=== PATIENT | female | born 2000 | race Two or more races ===

== ENCOUNTER 2021-11-11 04:13 | Inpatient (IN) | payer OTHER ==
[~2021-11-11] VITALS: Ht 167.6 cm; Wt 44.5 kg
[2021-11-11] MEDS ORDERED: FA-80.8 M1 PO (04:32)
== END 2021-11-13 12:30 | disposition home or self-care (01) | DRG 869 ==
LOC: ER 04:13 → EMR PED 04:25 → ER 04:25 → PED 16:26
PROVIDERS: ADMIT Emergency Medicine Pediatric Emergency Medicine; ATTEND Emergency Medicine Pediatric Emergency Medicine
DX: A49.3 Mycoplasma infection, unspecified site (principal); R10.9 Unspecified abdominal pain; E86.0 Dehydration; E87.8 Other disorders of electrolyte and fluid balance, not elsewhere classified; R63.0 Anorexia; Z20.822 Contact with and (suspected) exposure to COVID-19

== ENCOUNTER 2022-06-03 23:08 | Emergency (ER) | payer OTHER ==
[~2022-06-03] VITALS: Ht 165.1 cm; Wt 44.0 kg
[~2022-06-03 23:08] MED LIST: FA-80.8 M1 PO
[2022-06-04] MEDS ORDERED: PHENAGIL TABLE1 EACH PO (03:33)
[2022-06-04] MEDS ORDERED: ZYNCOF 20-400120 ML PO (03:33)
== END 2022-06-04 03:39 ==
LOC: ER 23:08
DX: B34.9 Viral infection, unspecified (principal); Z20.822 Contact with and (suspected) exposure to COVID-19

== ENCOUNTER 2022-08-21 14:34 | Emergency (ER) | payer OTHER ==
[~2022-08-21] VITALS: Ht 167.6 cm; Wt 47.6 kg
[~2022-08-21 14:34] MED LIST changes: +PHENAGIL TABLE1 EACH PO; +ZYNCOF 20-400120 ML PO
== END 2022-08-21 20:36 | disposition home or self-care (01) ==
LOC: ER 14:34
DX: U07.1 COVID-19 (principal); A49.3 Mycoplasma infection, unspecified site; J06.9 Acute upper respiratory infection, unspecified

== ENCOUNTER 2022-11-25 16:36 | Emergency (ER) | payer OTHER ==
[~2022-11-25] VITALS: Ht 167.6 cm; Wt 46.3 kg
== END 2022-11-25 20:57 | disposition home or self-care (01) ==
LOC: ER 16:36
DX: J06.9 Acute upper respiratory infection, unspecified (principal); Z20.822 Contact with and (suspected) exposure to COVID-19

== ENCOUNTER 2023-03-24 19:08 | Emergency (ER) | payer OTHER ==
[~2023-03-24] VITALS: Ht 167.6 cm; Wt 47.6 kg
[2023-03-24] MEDS ORDERED: PRENA1 CHEW TA1.4 MG PO (20:32)
[2023-03-24] MEDS ORDERED: FEOSOL45 MG PO (20:32)
== END 2023-03-25 00:48 | disposition home or self-care (01) ==
LOC: ER 19:08
DX: O20.8 Other hemorrhage in early pregnancy (principal); Z3A.10 10 weeks gestation of pregnancy

== ENCOUNTER 2023-04-18 00:29 | Emergency (ER) | payer OTHER ==
[~2023-04-18] VITALS: Ht 167.6 cm; Wt 46.3 kg
[~2023-04-18 00:29] MED LIST changes: +FEOSOL45 MG PO; +PRENA1 CHEW TA1.4 MG PO
[2023-04-18] MEDS ORDERED: PEPCID20 MG PO (03:04)
[2023-04-18] MEDS ORDERED: ZOFRAN8 MG PO (03:04)
== END 2023-04-18 03:28 | disposition home or self-care (01) ==
LOC: ER 00:29
DX: K52.9 Noninfective gastroenteritis and colitis, unspecified (principal); R11.10 Vomiting, unspecified; Z3A.14 14 weeks gestation of pregnancy

== ENCOUNTER 2023-08-31 18:31 | Inpatient (IN) | payer OTHER ==
[~2023-08-31] VITALS: Ht 167.6 cm; Wt 54.4 kg
[~2023-08-31 18:31] MED LIST changes: +PEPCID20 MG PO; +ZOFRAN8 MG PO
[2023-08-31 19:33] LABS: URINE APPEARANCE Clear; URINE BILIRRUBIN Negative (NEGATIVE); URINE BLOOD Negative; URINE COLOR Yellow; URINE LEUKOCYTE Large; URINE NITRATE Negative; URINE PROTEIN Negative (NEGATIVE)
[2023-08-31 19:37] LABS: URINE EPITHELIAL CELLS 31.9 uL (0.0-38.8); URINE RBC 2.2 uL (0.0-20.8)
[2023-08-31 19:40] LABS: HEMATOCRIT 30.4 % (36.0-45.00); HEMOGLOBIN 9.6 g/dL (12.0-15.00); MEAN CELL VOLUME 69.5 fL (80.00-100.00); MEAN CORPUSCULAR HGB CONC 31.7 g/dl (32.0-36.0); PLATELET COUNT 212 K/uL (150-450); RED BLOOD COUNT 4.37 M/uL (4.00-6.00); RED CELL DISTRIBUTION WIDTH 15.9 % (11.5-14.5)
[2023-08-31 19:41] LABS: URINE GLUCOSE 100 MG/DL (NEGATIVE)
[2023-08-31 19:48] LABS: URINE YEAST FEW /hpf
[2023-09-05] MEDS ORDERED: Procardia Xl 30MG TA PO (12:26)
== END 2023-09-05 14:27 | disposition home or self-care (01) | DRG 833 ==
LOC: OBS/DEL 18:31 → LDR 09-01 13:05 → OBS/DEL 09-01 13:05 → OB/GYN 09-03 10:26
PROVIDERS: ADMIT Student in an Organized Health Care Education/Training Program; ATTEND Student in an Organized Health Care Education/Training Program
PROC: BY4FZZZ Ultrasonography of Third Trimester, Single Fetus (ICD-10-PCS; principal; 2023-08-31)
PROC: 4A1HXCZ Monitoring of Products of Conception, Cardiac Rate, External Approach (ICD-10-PCS; 2023-09-01)
PROC: BY4FZZZ Ultrasonography of Third Trimester, Single Fetus (ICD-10-PCS; 2023-09-02)
PROC: BU4CZZZ Ultrasonography of Uterus and Ovaries (ICD-10-PCS; 2023-09-02)
DX: O47.03 False labor before 37 completed weeks of gestation, third trimester (principal); O35.3XX0 Maternal care for (suspected) damage to fetus from viral disease in mother, not applicable or unspecified; O36.8130 Decreased fetal movements, third trimester, not applicable or unspecified; Z3A.34 34 weeks gestation of pregnancy; Z20.822 Contact with and (suspected) exposure to COVID-19; O26.893 Other specified pregnancy related conditions, third trimester; R10.2 Pelvic and perineal pain